=== PATIENT | female | born 1950 | race Caucasian/White ===

== ENCOUNTER → 2018-06-04 | Outpatient (CLI) | payer SELFPAY ==
--- NOTE | 2018-06-04 17:08 | PCVCIMAG ---
APPROVED REPORT Study performed: 06/04/2018 09:21:00 Exam: Stress Echocardiogram Indication: Dyspnea Patient Location: Echo lab Stress Nurse: Susan Jacobo RN Room #: 2 Status: routine Ht: 5 ft 4 in HR: 87 bpm BP: 142/78 mmHg Rhythm: NSR Medical History Medical History: HTN Cardiac Risk Factors: HTN Previous Cardiac Procedures: none Pretest Chest Pain Characteristics: No chest pain Exercise History: Sedentary Procedure The patient underwent an Exercise Stress Test using the Silvia Protocol. Blood pressure, heart rate, and EKG were monitored. An Echocardiogram was performed by c2 tactical analysis technician in four stages in quad fashion. At peak stress, four selected images were obtained and placed side by side with resting images for comparison. Stress Test Details Stress Test: Exercise stress testing was performed using a Silvia( Stage one) protocol. HR Resting HR: 85 bpmMax Heart Rate (APMHR): 154 bpm Max HR Achieved: 160 bpmTarget HR (85% APMHR): 130 bpm % of APMHR: 103 Recovery HR: 99 bpm HR response to stress: Normal HR response to stress BP Resting BP: 142/78 mmHg Max BP: 180/80 mmHg Recovery BP: 164/70 mmHg BP response to stress: hypertensive response to stress. ECG Resting ECG: Sinus Rhythm, nonspecific ST-T abnormalities Stress ECG: Sinus Rhythm ST Change: Downsloping ST depression Maximum ST Deviation: -2.25 mm Arrhythmia: short run SVT IPE Recovery ECG: Sinus Rhythm Recovery ST Change: Horizontal ST depression Recovery Arrhythmia: Rare PAC Clinical Reason for Termination: Maximal effort Stress Symptoms: fatigue Exercise duration: 5 min 03 sec Highest Stage Achieved: Stage 1: 1.7 mph at 10% grade. modified to 12% at 3 min Exercise capacity: 5.1 METs Overall Exercise Capacity for Age: Poor Scale: Sedentary Angina Score: None No complications. Stress ECG Conclusion The patient exercised according to the SILVIA protocol for 5:03 mins; achieving a work level of 5.1 METS. The resting heart rate of 87 bpm ebonie to a maximum heart rate of 160 bpm. This value [id number] % of the maximal, age-predicted heart rate. The resting blood pressure of 142/78 mmHg, ebonie to a maximum blood pressure of 180/80 mmHg. The exercise test was stopped due to fatigue . Greene Treadmill Score is 16.3 which is Low risk. Pre-Stress Echo The resting Echocardiogram showed normal left ventricular contractility with an estimated Ejection Fraction of about 55-60%. Normal wall motion in all segments on baseline images. Post-Stress Echo The stress Echocardiogram showed normal left ventricular contractility with an estimated Ejection Fraction of about 60-65%. Normal augmentation of wall motion in all segments on post stress images. Clinical No clinical or ECG evidence for ischemia. Conclusion Clinical Response: Non-ischemic Exercise Capacity: Below Average Stress ECG Response: Equivocal Stress Echo Images: Non-ischemic Echo findings: Mild-moderate mitral stenosis with a valve area of 2.2 cm2. Mild to moderate mitral regurgitation. LVH- mild Elevated PA pressures with a PA pressure of 52 mmHg. Bi atrial enlargement No clinical echocardiographic evidence for ischemia. No echocardiographic evidence for exercise induced ischemia. Normal stress echocardiogram with maximal exercise stress. No prior study available for comparison. <Conclusion> Echo findings: Mild-moderate mitral stenosis with a valve area of 2.2 cm2. Mild to moderate mitral regurgitation. LVH- mild Elevated PA pressures with a PA pressure of 52 mmHg. Bi atrial enlargement No clinical echocardiographic evidence for ischemia. No echocardiographic evidence for exercise induced ischemia. Normal stress echocardiogram with maximal exercise stress.
== END | disposition home or self-care (01) ==
LOC: PCVCIMAG 09:47
PROVIDERS: ATTEND Internal Medicine Cardiovascular Disease
DX: R06.09 Other forms of dyspnea (principal)
CPT/HCPCS: 93325; 93351